=== PATIENT | male | born 2000 | race Two or more races ===

== ENCOUNTER 2023-07-13 16:34 | Outpatient (CLI) | payer OTHER ==
--- NOTE | 2023-07-13 17:11 | XRAY Report ---
PROCEDURE: Finger(s) RT INDICATIONS: SPRAIN OF RT THUMB TECHNIQUE: AP hand, 2 views of the first finger(s) acquired. COMPARISON: None. FINDINGS: Bones: No fractures or dislocations. No suspicious bony lesions. Soft tissues: No suspicious soft tissue calcifications or masses. IMPRESSION: No acute bony abnormality. Reviewed by: Radha Timmons MD on 07/13/2023 5:09 PM [facility] Approved by: Radha Timmons MD on 07/13/2023 5:09 PM [facility] Station ID: [id number]
== END 2023-07-13 16:35 | disposition home or self-care (01) ==
LOC: DI 16:34
PROVIDERS: ATTEND Physician Assistant Medical
DX: S63.681A Other sprain of right thumb, initial encounter (principal)